=== PATIENT | male | born 1965 | race Caucasian/White ===

== ENCOUNTER 2016-10-31 09:13 | Emergency (ER) | payer OTHER ==
[2016-10-31 09:19] VITALS: TEMP 97.4; BMI 30.7
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
[2016-10-31 09:54] LABS: ARTERIAL BLD GAS O2 SATURATION 94.6 % (90-98.9); ARTERIAL BLOOD GAS BASE EXCESS -0.8 meq/l (-2-2)
[2016-10-31 09:55] LABS: ALLENS TEST POSITIVE; ART PUNCT SITE RIGHT RADIAL; LPM/O2% 21%; METHEMOGLOBIN 0.9 % (0.4-1.5); PT. ON O2? NO
[2016-10-31 09:56] LABS: TYPE OF O2 ROOM AIR
[2016-10-31 09:57] LABS: ARTERIAL BLOOD GAS pH 7.41 (7.35-7.45)
[2016-10-31 10:44] VITALS: BP 115/71; PULSE 57
--- NOTE | 2016-10-31 13:30 | EKG ---
Test Reason : Blood Pressure : / mmHG Vent. Rate : 064 BPM Atrial Rate : 064 BPM P-R Int : 172 ms QRS Dur : 124 ms QT Int : 400 ms P-R-T Axes : 062 010 030 degrees QTc Int : 412 ms NORMAL SINUS RHYTHM NON-SPECIFIC INTRA-VENTRICULAR CONDUCTION DELAY BORDERLINE ECG WHEN COMPARED WITH ECG OF 27-JAN-2016 10:51, NO SIGNIFICANT CHANGE WAS FOUND Confirmed by RAND SAUCEDA, RONEY ([id number]) on 10/31/2016 1:29:24 PM Referred By: Confirmed By:RONEY GORDILLO MD
== END 2016-10-31 10:44 | disposition home or self-care (01) ==
LOC: JER 09:13
DX: J70.5 Respiratory conditions due to smoke inhalation (principal)
CPT/HCPCS: 36600; 82375; 82803; 83050; 93005; 93010; 99283-25